=== PATIENT | male | born 1950 | race African-American/Black ===

== ENCOUNTER 2020-11-01 08:55 | Outpatient (CLI) | payer BC ==
[2020-11-01] MEDS ORDERED: BARIUM SULFATE 135 ML SUSP.RECON (E-Z-HD) PO ONE (09:14)
== END 2020-11-01 20:31 | disposition home or self-care (01) ==
LOC: SRD 08:55
PROVIDERS: ATTEND Otolaryngology
DX: R47.02 Dysphasia (principal)
CPT/HCPCS: 74220-TC